=== PATIENT | male | born 1995 | race African-American/Black ===

== ENCOUNTER 2020-02-16 12:19 | Emergency (ER) | payer OTHER ==
[~2020-02-16] VITALS: Ht 177.8 cm; Wt 91.0 kg
[2020-02-16] MEDS ORDERED: TETANUS, DIPHTHERIA, PERTUSSIS VAC/PF 0.5ML (>7YR OLD) IM ONE (13:00)
[2020-02-16] MEDS ORDERED: BACITRACIN ZINC OINT UDPKT TOP ONE (13:00)
[2020-02-16] MEDS ORDERED: IBUPROFEN 600MG TABLET PO ONE (13:00)
[2020-02-16] MEDS ORDERED: AMOXICILLIN/POTASSIUM CLAVULANATE 875/125MG TAB PO ONE (13:00)
[2020-02-16 14:00] VITALS: BP 140/102
== END 2020-02-16 14:44 | disposition home or self-care (01) ==
LOC: ER 12:19
DX: S81.852A Open bite, left lower leg, initial encounter (principal); Y35.893A Legal intervention involving other specified means, suspect injured, initial encounter; W54.0XXA Bitten by dog, initial encounter; Y93.89 Activity, other specified; Y92.488 Other paved roadways as the place of occurrence of the external cause
CPT/HCPCS: 12002; 73590; 90471; 90715; 99283

== ENCOUNTER 2021-06-18 04:41 | Emergency (ER) | payer OTHER ==
[~2021-06-18] VITALS: Ht 182.9 cm; Wt 105.0 kg
[2021-06-18] MEDS ORDERED: ONDANSETRON HCL 4MG/2ML INJ IV STA (04:58)
[2021-06-18] MEDS ORDERED: NALOXONE HCL 1 MG/ML 2ML VIAL IM ONE (05:00)
[2021-06-18] MEDS ORDERED: NALOXONE HCL 0.4 MG/ML 1ML VIAL IV ONE (05:00)
[2021-06-18 05:58] LABS: BASOPHILS % 0.3 % (0.0-2.0); EOSINOPHILS % 2.9 % (0.0-5.0); HEMATOCRIT. 46.1 % (42.0-52.0); HEMOGLOBIN. 15.3 g/dL (14.0-18.0); LYMPHOCYTES % 23.4 % (20.0-50.0); MEAN CORPUSCULAR HEMOGLOBIN 28.5 pg (28.0-32.0); MEAN CORPUSCULAR VOLUME 85.8 fL (80.0-94.0); MEAN PLATELET VOLUME 7.7 fl (7.4-10.4); MONOCYTES % 8.6 % (2.0-8.0); NEUTROPHILS % 64.8 % (40.0-76.0); PLATELET 415 x1000/uL (130-400); RED BLOOD CELL COUNT 5.38 mill/uL (4.7-6.1); RED CELL DISTRIBUTION WIDTH 14.3 % (11.6-14.6)
[2021-06-18 06:07] LABS: CHLORIDE 108 mEq/L (98-107)
[2021-06-18 06:10] LABS: ETHANOL BLOOD 117 mg/dL
[2021-06-18 07:13] LABS: METHADONE URINE SCREEN NEGATIVE (NEGATIVE); OPIATES URINE SCREEN NEGATIVE (NEGATIVE)
[2021-06-18 07:14] LABS: *AMPHETAMINES SCREEN URINE PRESUMTIVE POSITIVE (NEGATIVE); *BARBITURATES SCREEN URINE NEGATIVE (NEGATIVE); *BENZODIAZEPINES SCREEN URINE NEGATIVE (NEGATIVE); *COCAINE SCREEN URINE NEGATIVE (NEGATIVE); CANNABINOID URINE SCREEN PRESUMTIVE POSITIVE (NEGATIVE); PHENCYCLIDINE URINE SCREEN NEGATIVE (NEGATIVE)
[2021-06-18 12:29] VITALS: BP 150/98
== END 2021-06-18 12:43 | disposition home or self-care (01) ==
LOC: ER 04:41
DX: T43.621A Poisoning by amphetamines, accidental (unintentional), initial encounter (principal); I49.9 Cardiac arrhythmia, unspecified; R51.9 Headache, unspecified; Y92.9 Unspecified place or not applicable
CPT/HCPCS: 36415; 70450; 71045; 80048; 80305; 80320; 85025; 93005; 96361; 96374; 96375; 99291; J2310; J2405; 99285; G0480

== ENCOUNTER 2024-04-30 04:53 | Emergency (ER) | payer MEDICAID, OTHER | END 2024-04-30 05:50 | LOC: ER 04:53 | DX: M79.603 Pain in arm, unspecified (principal); Z53.21 Procedure and treatment not carried out due to patient leaving prior to being seen by health care provider ==

== ENCOUNTER 2024-04-30 05:43 | Emergency (ER) | payer MEDICAID ==
[~2024-04-30] VITALS: Ht 182.9 cm; Wt 106.0 kg
== END 2024-04-30 06:00 | disposition left against medical advice (07) ==
LOC: ER 05:43
DX: M79.602 Pain in left arm (principal); Z53.21 Procedure and treatment not carried out due to patient leaving prior to being seen by health care provider